=== PATIENT | female | born 1995 | race American Indian/Alaskan Native ===

== ENCOUNTER 2018-08-03 19:56 | Emergency (ER) | payer SELFPAY ==
[2018-08-03 20:03] VITALS: BP 145/75
--- NOTE | 2018-08-03 20:05 | Emergency Department Report ---
Blank Doc - Documentation Documentation: This is a 23-year-old female that presents with right middle finger paronychia. Denies any other complaints. This initial assessment diagnostic orders/clinical plan/treatment(s) is/are subject to change based on patient's health status, clinical progression and re- assessment by fellow clinical providers in the ED. Further treatment and workup at subsequent clinical providers discretion. Patient/guardians urged not to elope from ED s their condition may be serious if not clinically assessed and managed. Initial orders include: 1-Patient sent to MAIN for further evaluation and treatment
--- NOTE | 2018-08-03 22:45 | Emergency Department Report ---
Abscess Boil HPI - HPI Chief Complaint: Skin/Abscess/Foreign Body Stated Complaint: SWOLLEN MIDDLE FINGER RIGHT Time Seen by Provider: 08/03/18 20:01 Duration: 1 Week Location: Upper Extremity (right 3rd distal finger) Severity: Severe History: Yes Pain, Yes Numbness, No Fever, No Purulent Drainage, No Foreign Body, No Previous History, No Insect Bite HPI: This is a 23-year-old -[place] female who presents with swelling and redness around her third nail bed and distal finger for one week. Patient states when she left mosque last Wednesday she noticed some swelling to the distal right third finger. Her mother advised to soak in epson salt which she did with no improvement of symptoms. Patient states yesterday she noticed increased swelling, a green spot left of the nailbed, and numbness yesterday. She decided to come in for further evaluation. She does not recall injury. Home Medications: Previous Rx's Medication Instructions Recorded Last Taken Type Clindamycin [Clindamycin CAP] 300 mg PO Q8H #21 cap 08/04/18 Unknown Rx Ibuprofen [Motrin 600 MG tab] 600 mg PO Q8H PRN #12 tablet 08/04/18 Unknown Rx Allergies/Adverse Reactions: Allergies Allergy/AdvReac Type Severity Reaction Status Date / Time No Known Allergies Allergy Unverified 08/03/18 19:59 ED Review of Systems ROS: Stated complaint: SWOLLEN MIDDLE FINGER RIGHT Other details as noted in HPI Constitutional: denies: chills, fever Respiratory: denies: cough, shortness of breath, wheezing Cardiovascular: denies: chest pain, palpitations Gastrointestinal: denies: abdominal pain, nausea, diarrhea Skin: change in hair/nails (swelling and redness around right 3rd nail bed). denies: rash, lesions Neurological: denies: headache, weakness, paresthesias Psychiatric: denies: anxiety, depression ED Past Medical Hx - Past Medical History Previous Medical History?: No - Surgical History Past Surgical History?: No - Social History Smoking Status: Never Smoker Substance Use Type: None - Medications Home Medications: Home Medications Medication Instructions Recorded Confirmed Last Taken Type Clindamycin [Clindamycin CAP] 300 mg PO Q8H #21 cap 08/04/18 Unknown Rx Ibuprofen [Motrin 600 MG tab] 600 mg PO Q8H PRN #12 tablet 08/04/18 Unknown Rx ED Abscess Boil Physical Exam - Exam General: Vital signs noted. No distress. Alert and acting appropriately. Front/Back of Body, Lg (Color): 1 - Right 3rd distal phalanx redness, swelling, tenderness at nail edge to palpation, and green discoloration lateral nail edge Exam: Yes Tenderness, Yes Fluctuance, Yes Surrounding Cellulites/Erythema, Yes Normal Neurologic Exam, Yes Normal Circulation, No Lymphangitis, No Crepitation, No Heart Murmur I & D Note - I & D Note I & D Note: The area was prepared and draped in the usual, sterile manner. The site was anesthetized with 1% lidocaine without epinephrine. A 18 gauge needle was used to lift the skin fold off the nail plate, purulent material expressed. Bleeding was minimal. Followup: The patient tolerated the procedure well without complications. Standard post-procedure care was explained and return precautions are given. ED Course Vital Signs 08/03/18 20:01 Temperature 98.1 F Pulse Rate 96 H Respiratory 18 Rate Blood Pressure 145/75 O2 Sat by Pulse 100 Oximetry Critical care attestation.: If time is entered above; I have spent that time in minutes in the direct care of this critically ill patient, excluding procedure time. ED Medical Decision Making - Lab Data Result diagrams: 08/03/18 22:48 Lab Results 08/03/18 Range/Units 22:48 WBC 8.8 (4.5-11.0) K/mm3 RBC 4.82 (3.65-5.03) M/mm3 Hgb 12.9 (10.1-14.3) gm/dl Hct 39.3 (30.3-42.9) % MCV 81 (79-97) fl MCH 27 L (28-32) pg MCHC 33 (30-34) % RDW 15.3 H (13.2-15.2) % Plt Count 350 (140-440) K/mm3 Lymph % (Auto) 41.8 H (13.4-35.0) % [place] % (Auto) 5.3 (0.0-7.3) % Eos % (Auto) 2.5 (0.0-4.3) % Baso % (Auto) 1.0 (0.0-1.8) % Lymph # 3.7 (1.2-5.4) K/mm3 [place] # 0.5 (0.0-0.8) K/mm3 Eos # 0.2 (0.0-0.4) K/mm3 Baso # 0.1 (0.0-0.1) K/mm3 Seg Neutrophils % 49.4 (40.0-70.0) % Seg Neutrophils # 4.3 (1.8-7.7) K/mm3 - Radiology Data Radiology results: report reviewed FINAL REPORT EXAM: XR FINGER(S) 2+V RT HISTORY: 3rd distal cellulitis and swelling TECHNIQUE: Frontal view of the left hand and 2 additional views of the left 3rd finger. PRIORS: None. FINDINGS: There is mild soft tissue swelling of the 3rd finger. There is no evidence of foreign body or soft tissue air. The bones are normally aligned and mineralized. The joint spaces are well- preserved. There is no evidence of acute fracture. IMPRESSION: Mild soft tissue swelling of the 3rd finger. No evidence of acute fracture - Medical Decision Making This is a 23 y.o. female that presents with a painful swelling and redness around third right distal finger times one week. Patient is stable and examined by me. No acute signs of distress noted. Findings susceptible of paronychia third distal phalanx. Obtained CBC and x-ray of the right fingers. All labs are unremarkable. Mild soft tissue swelling of the 3rd finger. No evidence of acute fracture. I&D refer to note. Given clindamycin 300 mg by mouth once while in ER. Discussed plan to start clindamycin and ibuprofen with patient. Educated patient on care and given handout. Patient agrees to ED plan of care. Discharged home and follow up with PCP in 2-3 days. ED Disposition Clinical Impression: Paronychia of finger of right hand Disposition: - TO HOME OR SELFCARE Is pt being admited?: No Does the pt Need Aspirin: No Condition: Stable Instructions: Paronychia (ED) Additional Instructions: Complete full round of clindamycin antibiotic as prescribed. Start frequent warm soaks will help to maintain the patency of the incision and assist wound drainage. Follow up with PCP or ER in 2-3 days. Return to ER if foul smelling discharge, swelling, or severe pain to wound. Prescriptions: Clindamycin [Clindamycin CAP] 300 mg PO Q8H #21 cap Ibuprofen [Motrin 600 MG tab] 600 mg PO Q8H PRN #12 tablet PRN Reason: Pain Referrals: HALLE PACHECO MD [Primary Care Provider] - 3-5 Days [facility] [Outside] - 3-5 Days [facility] [Outside] - 3-5 Days Forms: Work/School Release Form(ED) Time of Disposition: 01:19
[2018-08-03 22:57] LABS: Basophils # (Auto) 0.1 K/mm3 (0.0-0.1); Eosinophils # (Auto) 0.2 K/mm3 (0.0-0.4); Eosinophils % (Auto) 2.5 % (0.0-4.3); Hematocrit 39.3 % (30.3-42.9); Hemoglobin 12.9 gm/dl (10.1-14.3); Lymphocytes # (Auto) 3.7 K/mm3 (1.2-5.4); Lymphocytes % (Auto) 41.8 % (13.4-35.0); Mean Corpuscular HGB Conc 33 % (30-34); Mean Corpuscular Volume 81 fl (79-97); Monocytes # (Auto) 0.5 K/mm3 (0.0-0.8); Monocytes % (Auto) 5.3 % (0.0-7.3); Platelet Count 350 K/mm3 (140-440); Red Blood Count 4.82 M/mm3 (3.65-5.03); Red Cell Distribution Width 15.3 % (13.2-15.2)
--- NOTE | 2018-08-04 00:11 | XRay Report ---
FINAL REPORT EXAM: XR FINGER(S) 2+V RT HISTORY: 3rd distal cellulitis and swelling TECHNIQUE: Frontal view of the left hand and 2 additional views of the left 3rd finger. PRIORS: None. FINDINGS: There is mild soft tissue swelling of the 3rd finger. There is no evidence of foreign body or soft ti ssue air. The bones are normally aligned and mineralized. The joint spaces are well-preserved. There is no evid ence of acute fracture. IMPRESSION: Mild soft tissue swelling of the 3rd finger. No evidence of acute fracture
[2018-08-04] MEDS ORDERED: XYLOCAINE 1% MPF 5 mL INFILTRATI ONE (00:38)
[2018-08-04] MEDS ORDERED: CLEOCIN PO ONE (01:21)
== END 2018-08-04 01:50 | disposition home or self-care (01) ==
LOC: ED 19:56
DX: L03.011 Cellulitis of right finger (principal)
CPT/HCPCS: 36415; 85025